=== PATIENT | male | born 1980 | race Caucasian/White ===

== ENCOUNTER 2025-01-19 10:30 | Emergency (ER) | payer OTHER ==
[2025-01-19] MEDS: Acetaminophen/Butalbital/Caffeine 325-50-40 MG Tab PO ONE (15:32)
== END 2025-01-19 16:42 | disposition home or self-care (01) ==
LOC: MW.ED 10:30
DX: G44.209 Tension-type headache, unspecified, not intractable (principal); Z79.899 Other long term (current) drug therapy
CPT/HCPCS: 87428; 99284; A9270; 99283